=== PATIENT | male | born 1985 | race Caucasian/White ===

== ENCOUNTER 2018-02-04 22:21 | Emergency (ER) | payer SELFPAY ==
[~2018-02-04] VITALS: Ht 182.9 cm; Wt 97.5 kg
[~2018-02-04 22:21] MED LIST: CIPR500T78 PO; FAMO20TA5 PO; METH4TAB PO
--- NOTE | 2018-02-04 22:35 | ED Respiratory ---
General Chief Complaint: Respiratory Problems Stated Complaint: ASTHMA Source: patient Exam Limitations: no limitations History of Present Illness Date Seen by Provider: Feb 04, 2018 Time Seen by Provider: 22:30 Initial Comments PT C/O ASTHMA FLARE UP PT STATES HIS IS UPSTAIRS HAVING A BABY STATES HE WAS IN AN AREA NEAR WHERE THERE WAS CLEANING BEING DONE, AND A COUPLE OF MINUTES LATER, HE BEGAN TO HAVE CHEST TIGHTNESS STATES HE HAS BEEN OUT OF HIS ALBUTEROL INHALER FOR A COUPLE OF DAYS--GOES THROUGH AN INHALER EVERY 1-2 MONTHS. DOES NOT USE A SPACER--STATES HE HAS NOT USED ONE IN OVER 15 YEARS. STATES HE USED TO BE ON A STEROID INHALER BUT DID NOT THINK IT HELPED, SO HAS NOT USED ONE SINCE AT LEAST JUNE 2017 DOES NOT TAKE / USE ANYTHING ELSE FOR HIS ASTHMA STATES HE HAS HAD ASTHMA HIS WHOLE LIFE NO FEVER OR RECENT ILLNESS PCP: [facility]--HAS NOT BEEN THERE SINCE 06/2017 Allergies and Home Medications Allergies Coded Allergies: No Known Allergies (Verified Allergy, Unknown, 06/03/07) Home Medications Ciprofloxacin HCl 500 Mg Tablet, 500 MG PO BID, (Reported) Famotidine 20 Mg Tablet, 1 EACH PO BID Prescribed by: KOSTA DUVALL on 12/10/14105 Methylprednisolone 4 Mg/Dose-Pack Tab.ds.pk, 0 PO UD Prescribed by: KOSTA DUVALL on 12/10/14105 Past Glglyuu-Udptva-Kzelvl Hx Patient Social History Recent Foreign Travel: No Contact w/Someone Who Travel: No Seasonal Allergies Seasonal Allergies: Yes Past Medical History Adenoidectomy, Nose, Orthopedic, Tonsillectomy Asthma Reproductive Disorders: No Tonsilitis Physical Exam Vital Signs Vital Signs - First Documented 02/04/18 22:27 Temp 96.6 Pulse 103 Resp 22 B/P (MAP) 127/94 (105) O2 Delivery Room Air Capillary Refill : Progress/Results/Core Measures Suspected Sepsis SIRS Temperature: Pulse: Respiratory Rate: Blood Pressure / Mean: Results/Orders My Orders Orders - KOSTA DUVALL DO Albuterol/Ipra Inhalation Soln (Duoneb I (02/04/18 22:45) Dexamethasone Injection (Decadron Inject (02/04/18 22:45) Rt Request For Service (02/04/18 22:33) Svn Small Volume Nebulizer (02/04/18 22:33) Rx-Albuterol Inhaler (Rx-Proair) (02/04/18 22:44) Medications Given in ED Current Medications Medications Dose Ordered Sig/Karla Route Start Time Stop Time Status Last Admin Dose Admin Albuterol/ Ipratropium 3 ml ONCE ONCE INH 02/04/18 22:45 02/04/18 22:46 DC 02/04/18 22:48 3 ML Dexamethasone Sodium Phosphate 20 mg ONCE ONCE IH 02/04/18 22:45 02/04/18 22:46 DC 02/04/18 22:48 20 MG Vital Signs/I&O 02/04/18 22:27 Temp 96.6 Pulse 103 Resp 22 B/P (MAP) 127/94 (105) O2 Delivery Room Air Capillary Refill : Departure Impression Primary Impression: Asthma Disposition: HOME, SELF-CARE Condition: Improved Departure-Patient Inst. Referrals: [facility] (PCP) Primary Care Physician Patient Instructions: Asthma, Adult (DC) Add. Discharge Instructions: USE SPACER WITH INHALER AT ALL TIMES FOLLOW UP WITH YOUR DR THIS WEEK FOR FURTHER CARE All discharge instructions reviewed with patient and/or family. Voiced understanding. Scripts Budesonide (Pulmicort Flexhaler) 90 Mcg Aer.pow.ba 90 MCG IH BID, #1 GM Prov: KOSTA DUVALL DO 02/04/18 Montelukast Sodium (Singulair) 10 Mg Tablet 10 MG PO DAILY, #30 TAB Prov: KOSTA DUVALL DO 02/04/18 KOSTA DUVALL DO Feb 04, 2018 22:35
[2018-02-04] MEDS ORDERED: RX-ALBUTEROL INHALER (PROAIR) 8 GM IH ONE (22:44)
[2018-02-04] MEDS ORDERED: DEXAMETHASONE 4 MG/ML SDV (DECADRON) IH ONE (22:45)
[2018-02-04] MEDS ORDERED: RT-ALBUTEROL/IPRATROPIUM 3 ML (DUONEB) VIAL INH ONE (22:45)
[2018-02-04] MEDS ORDERED: MONT10TA21 PO (22:53)
[2018-02-04] MEDS ORDERED: BUDE90AE2 IH (22:53)
[2018-02-04 23:26] VITALS: BP 127/94
== END 2018-02-04 23:26 | disposition home or self-care (01) ==
LOC: EDUNIT# 22:21 → ER 22:22
DX: J45.909 Unspecified asthma, uncomplicated (principal); Z90.89 Acquired absence of other organs; Z87.09 Personal history of other diseases of the respiratory system
CPT/HCPCS: 94640; 99283